=== PATIENT | female | born 1990 | race Caucasian/White ===

== ENCOUNTER 2025-08-10 14:38 | Outpatient (REF) | payer MEDICAID, SELFPAY ==
[2025-08-10 15:57] LABS: Hematocrit 40.9 % (37.0-47.0); Hemoglobin 14.1 g/dl (12.0-16.0); Mean Corpuscular HGB Conc 34.5 g/dl (31.0-35.0); Mean Corpuscular Hemoglobin 29.4 pg (27.0-33.0); Mean Corpuscular Volume 85.2 fL (80.0-98.0); NRBC Abs Auto 0.000 X10*3/uL (0.0-0.012); NRBC Pct Auto 0.0 /100WBC (0.0-0.2); Platelet Count 200 X10*3/uL (160-400); Red Blood Count 4.80 X10*6/uL (4.20-5.50); White Blood Count 7.2 X10*3/uL (4.8-10.8)
[2025-08-10 17:03] LABS: Alanine Aminotransferase 17 U/L (0-31); Albumin Level 4.9 g/dL (3.5-5.0); Alkaline Phosphatase 82 U/L (39-117); Anion Gap 12 (12-20); Aspartate Amino Transferase 27 U/L (5-31); Blood Urea Nitrogen 12 mg/dL (9-16); Calcium 9.5 mg/dL (8.4-10.2); Carbon Dioxide 28 mmol/L (22-29); Chloride 106 mmol/L (96-108); Cholesterol 153 mg/dL (<200); Estimated Glomerular Filt Rate > 60; HDL Cholesterol 63 mg/dL (>40); Potassium 3.5 mmol/L (3.3-5.1); Sodium 142 mmol/L (135-145); Total Protein 7.5 g/dL (6.5-8.0); Triglycerides 63 mg/dL (<150)
== END 2025-08-10 14:39 | disposition home or self-care (01) ==
LOC: HO.LAB 14:38
PROVIDERS: PCP Physician Assistant Medical; Visit Provider Physician Assistant Medical
DX: Z00.00 Encounter for general adult medical examination without abnormal findings (principal); G43.909 Migraine, unspecified, not intractable, without status migrainosus; I83.813 Varicose veins of bilateral lower extremities with pain; M70.60 Trochanteric bursitis, unspecified hip; Z13.1 Encounter for screening for diabetes mellitus; Z13.220 Encounter for screening for lipoid disorders
CPT/HCPCS: 36415; 80053; 80061; 82306; 84443; 85027

== ENCOUNTER 2025-08-10 14:38 | Outpatient (AMB) | payer MEDICAID, SELFPAY ==
--- NOTE | 2025-08-10 13:39 | MHC.PC.OV ---
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 The patient reports having varicose veins in her legs, which she attributes to her pregnancies. She describes them as sometimes painful, particularly behind her knees and extending upwards, with increased discomfort during due to swelling and pressure. The patient is considering treatment options but is undecided due to potential future pregnancies. The patient also reports experiencing hip pain, which she associates with running and training for a half marathon. The pain is localized to the side of the hip and improves with targeted exercises but recurs with running. The physician diagnosed this as greater trochanteric bursitis, explaining the anatomical stress factors involved. Additionally, the patient experiences migraines, which she has linked to weather changes and stress. She manages these episodes with Excedrin, which is effective, and has noted that they are not frequent enough to require prophylactic treatment. Medical History: - Varicose veins related to pregnancies - Greater trochanteric bursitis due to running - Migraine associated with weather changes and stress Medications: - Excedrin for migraine management Patient was informed and verbally consented to the use of an ambient scribe for clinic note documentation during this visit. [facility] Medical History (Updated 09/11/25 @ 00:27 by JF Garcia) Annual physical exam Greater trochanteric bursitis Lipid screening Migraine Varicose veins of bilateral lower extremities with pain Family History (Updated 08/10/25 @ 15:06 by Kelsie Billings MA) Mother No problems noted. Father No problems noted. Social History Housing: House Patient Tobacco Use Status: Never used Tobacco e-Cigarette/Vaping Use: Never Used service: No Current occupational status: unemployed Cognitive needs: No Hearing needs: No Vision needs: No Questionnaire PHQ-9 Over the last 2 weeks, how often have you been bothered by any of the following problems? 1. Little interest or pleasure in doing things: not at all 2. Feeling down, depressed, or hopeless: not at all 3. Trouble falling or staying asleep, or sleeping too much: not at all 4. Feeling tired or having little energy: not at all 5. Poor appetite or overeating: not at all 6. Feeling bad about yourself - or that you are a failure or have let yourself or your family down: not at all 7. Trouble concentrating on things, such as reading the newspaper or watching television: not at all 8. Moving or speaking so slowly that other people could have noticed. Or the opposite - being so fidgety or restless that you have been moving around a lot more than usual: not at all 9. Thoughts that you would be better off or of hurting yourself in some way: not at all Total score: 0 Depression Screening Interpretation: Negative Depression Screening Done: Yes Source: Developed by Drs. Cornelius Vallecillo, Jana Ospina, Laurent Krause and colleagues, with an educational jaz from [employer]. Thrive Questionnaire Date Thrive assessed: 08/10/25 I am a: Patient Within the past 12 months, did the food you bought not last and you didn't have the money to get more?: Never true Within the past 12 months, did you worry whether your food would run out before you got money to buy more?: Never true Do you have trouble paying for medicines?: No Do you have trouble getting transportation to medical appointments?: No Do you have trouble paying your heating and electricity bill?: No Do you have trouble taking care of your child, family member or friend?: No Do you have trouble with day-to-day activities such as bathing, preparing meals, shopping, managing finances, etc.?: No Are you currently unemployed and looking for a job?: No Are you interested in more education?: No THRIVE Score: 0 AUDIT C Alcohol Use Questionnaire (AUDIT-C) 1. How often do you have a drink containing alcohol?: Monthly or less 2. How many drinks containing alcohol do you have on a typical day when you are drinking?: 1 or 2 3. How often do you have six or more drinks on one occasion?: Less than monthly Total Score: 2 RONDA-7 AMB Questionnaire RONDA-7 Date RONDA - 7 assessed: 08/10/25 Feeling nervous, anxious, or on edge: 0 = Not at all Not being able to stop or control worryin = Not at all Worrying too much about different things: 0 = Not at all Trouble relaxin = Not at all Being so restless that it is hard to sit still: 0 = Not at all Becoming easily annoyed or irritable: 0 = Not at all Feeling afraid as if something awful might happen: 0 = Not at all Total RONDA-7 score (0-4 normal; 5-9 mild; 10-14 moderate; 15-21 severe): 0 Source: Developed by Drs. Cornelius Vallecillo, Jana Ospina, Laurent Krause and colleagues, with an educational jaz from [employer]. Review of Systems Const Details: CONSTITUTIONAL No Chills No Fever No Weight loss No fatigue No generalized weakness SKIN No itching No skin lesions EYES No change in visual acuity No eye pain No red eye HEAD AND NECK No dizziness Reports migraines linked to weather changes and stress No neck pain EAR/NOSE/MOUTH/THROAT No earache No sinus pain No congestion No hoarseness No sore throat RESPIRATORY No cough No shortness of breath No wheezing CARDIOVASCULAR No chest pain No dyspnea No palpitations No peripheral edema No Syncope GASTROINTESTINAL No abdominal pain No constipation No diarrhea No heartburn No loss of appetite No nausea No vomiting GENITOURINARY No dysuria No hematuria No urinary frequency No urinary urgency ENDOCRINE No cold intolerance No excessive hunger No excessive thirst No change in hair texture MUSCULOSKELETAL No back pain Reports hip pain associated with running No swelling No myalgias IMMUNOLOGICAL/ALLERGIC No congestion No itchy eyes No itchy nose No rhinitis No watery eyes HEMATOLOGIC No bleeding tendencies No bruising No fatigue LYMPHATIC No swollen lymph nodes NEUROLOGICAL No memory loss No paresthesias No focal weakness PSYCHIATRIC No anxiety No depression No sleeping problems No substance abuse No suicidal ideation Physical exam (Primary Care) Vital Signs: Last Vital Signs Temp 97 F 08/10/25 15:02 Pulse 74 08/10/25 15:02 BP 122/80 08/10/25 15:02 Pulse Ox 99 08/10/25 15:02 Oxygen Delivery Method Room Air 08/10/25 15:02 BMI result Body Mass Index 21.3 GENERAL Well Developed, Well Nourished, In no acute distress HEENT Head- Normocephalic, atraumatic Eyes- PERRLA, EOMI, Conjuctiva-WNL, Lids-WNL Ears- Canals- Clear, TMs- WNL Nose-Straight, Nares Patent OroPharynx-Mouth WNL, Tongue- no lesions, throat no erythema or exudate Neck- Supple, no lymphadenopathy, thyroid WNL CARDIOVASCULAR Heart- Regular rate and Rhythm without murmur Extremities- No edema RESPIRATORY Normal chest movement, clear to auscultation ABDOMINAL/GI Nondistended, soft, nontender, normal bowel sounds, no masses, no hepatosplenomegaly GENITOURINARY No CVA tenderness BACK Straight, normal ROM, nontender MUSCULOSKELETAL Pain on hip rotation, suggestive of greater trochanteric bursitis VASCULAR No JVD, Dorasalis pedis and Posterior Tibialis pulses normal and symmetrical DERMATOLOGY No rashes, no significant skin lesions, skin turgor WNL NEUROLOGICAL Cranial Nerves 11-x11 grossly intact, gait WNL, Coordination WNL, Muscle strength normal and Symmetrical, DTR normal and symmetrical, Light touch sensation intact PSYCHIATRIC Mood and affect WNL, Oriented to person, place and time Tobacco/Smoking Status: Tobacco use Status Tobacco use date assessed 08/10/25 08/10/25 13:41 Patient Tobacco Use Status Never used Tobacco 08/10/25 13:41 e-Cigarette/Vaping Use Never Used 08/10/25 13:41 PHQ-9: PHQ-9 Score PHQ-9: Total score 0 08/10/25 15:07 Depression Screening Interpretation: Negative Thrive Assessment: Date of Thrive Assessment Date Thrive assessed 08/10/25 08/10/25 13:41 Coding Level of Care Code New Pt New Pt Level 4 (23656) Patient Type New Diagnoses Annual physical exam Z00.00 Varicose veins of bilateral lower extremities with pain I83.813 Migraine G43.909 Greater trochanteric bursitis M70.60 Time Spent (min) 30 Comment Time was spent on chart review, Medication reconciliation, H&P, Patient education, orders Assessment & Plan Assessment & Plan (1) Annual physical exam: Code(s): Z00.00 - Encounter for general adult medical examination without abnormal findings Category: Medical Plan: Will get labs. Patient to follow up in 6 months or sooner if needed. (2) Varicose veins of bilateral lower extremities with pain: Code(s): I83.813 - Varicose veins of bilateral lower extremities with pain Category: Medical Plan: The patient will be referred to a vascular specialist for evaluation of varicose veins, which are exacerbated by . The specialist will assess the need for potential interventions, considering the patient's future plans. (3) Migraine: Code(s): G43.909 - Migraine, unspecified, not intractable, without status migrainosus Category: Medical Plan: The patient manages migraines with Excedrin, which is effective. Prophylactic treatment is not required as migraines are infrequent. Patient to follow up in 6 months or sooner if symptoms persist or worsen. (4) Greater trochanteric bursitis: Code(s): M70.60 - Trochanteric bursitis, unspecified hip Category: Medical Plan: The patient was advised on the use of anti-inflammatory medications for managing greater trochanteric bursitis. If symptoms persist, a referral for a cortisone injection may be considered. Patient to follow up as needed if symptoms persist or worsen. Plan I discussed with the patient the management of her varicose veins, including a referral to a vascular specialist to explore treatment options, especially considering her potential future pregnancies. We also reviewed the management of her greater trochanteric bursitis, recommending anti-inflammatory medications and the possibility of a cortisone injection if symptoms persist. For her migraines, we agreed that Excedrin is effective, and prophylactic treatment is unnecessary given the infrequency of her episodes. Orders: Orders Complete Blood Count no Diff 08/10/25 Z00.00 - Encounter for general adult medical examination without abnormal findings, G43.909 - Migraine, unspecified, not intractable, without status migrainosus, I83.813 - Varicose veins of bilateral lower extremities with pain Vitamin D 25-OH Total 08/10/25 Z00.00 - Encounter for general adult medical examination without abnormal findings Lipid Panel 08/10/25. - Encounter for general adult medical examination without abnormal findings, Z13.220 - Encounter for screening for lipoid disorders Comprehensive Met. Panel 08/10/25 - Encounter for general adult medical examination without abnormal findings, G43.909 - Migraine, unspecified, not intractable, without status migrainosus, Z13.1 - Encounter for screening for diabetes mellitus TSH reflex Free T4 08/10/25 - Encounter for general adult medical examination without abnormal findings, G43.909 - Migraine, unspecified, not intractable, without status migrainosus Referrals Vascular Surgery Referral I83.813 - Varicose veins of bilateral lower extremities with pain Patient Instructions: - Follow up with the vascular specialist for varicose veins evaluation. - Use anti-inflammatory medications as needed for hip pain. - Continue using Excedrin for migraine relief as needed. - Schedule follow-up appointment in six months.
[2025-08-10 15:02] VITALS: BP 122/80; PULSE 74; TEMP 36.1; O2SAT 99; BMI 21.3
--- OUTSIDE RECORDS SUMMARY | 2025-08-10 18:28 | XMS_ITS | Patient Health Record ---
Author Organization [facility] Address [address] [place] [address] Care Team Providers Care Lathe Operator Name Role Phone Stephan MANRIQUEZ, Cony Primary Care Provider Nicolle Cox Unavailable [phone] Reason For Referral No Information Social History Tobacco Use: Social History Observation Description Date Details (start date - stop date) Never Smoker NA - NA Tobacco Use/Smoking Question Answer Notes Are you a: nonsmoker Alcohol Screen Question Answer Notes Did you have a drink contain ing alcohol in the past year? Yes How often did you have a dri nk containing alcohol in the past year? 2 to 4 times a month (2 points) How many drinks did you have on a typical day when you were drinking in the past year? 1 or 2 drinks (0 point) How often did you have 6 or more drinks on one occasion in the past year? Never (0 point) Points 2 Interpretation Negative Tobacco use other than smoking: Question Answer Notes Are you an other tobacco user? No Plan Of Treatment No Information Insurance Providers Payer Name Payer Address Payer Phone Subscriber Number Group Number Insured Name Patient Relationship to Insured Coverage Start Date Coverage End Date [employer] [address] [place] [phone] [id number] Donnie Villanueva Spouse - patient is the spouse of the insured Medical (General) History Medical History History ICD Code Chicken pox Surgical History Surgery Date(Month/Year) Hospitalization History Reason Date(Month/Year) [facility]- childbirth 01/29/2021
== END 2025-08-10 15:31 | disposition home or self-care (01) ==
LOC: HO.HMCHD 14:39
PROVIDERS: PCP Physician Assistant Medical; Visit Provider Physician Assistant Medical
DX: Z00.00 Encounter for general adult medical examination without abnormal findings (principal); I83.813 Varicose veins of bilateral lower extremities with pain; G43.909 Migraine, unspecified, not intractable, without status migrainosus; M70.60 Trochanteric bursitis, unspecified hip